=== PATIENT | male | born 1990 ===

== ENCOUNTER 2017-02-07 05:54 | Emergency (ER) | payer SELFPAY ==
[2017-02-07 05:59] VITALS: BP 141/82; PULSE 111; RESP 16; TEMP 97.8; O2SAT 98
--- NOTE | 2017-02-07 06:21 | ED PDOC ---
HPI: Psych/Substance Abuse Time Seen by Provider: 02/07/17 06:05 Chief Complaint (Nursing): Medical Clearance Chief Complaint (Provider): Medical Clearance History Per: Patient History/Exam Limitations: no limitations Current Symptoms Are (Timing): Still Present Suicide/Self Injury Attempted (Context): None Modifying Factor(s): Alcohol Involuntary Hold By: Local Law Enforcement Additional Complaint(s): 26 year old male brought in by D presents to ED for medical and psychiatric evaluation, denies any past medical/surgical history, and is under arrest. Patient denies all medical complaints and admits to drinking. [facility] states patient was arrested for a DUI and attempted to run. PCP: None Past Medical History Reviewed: Historical Data, Nursing Documentation, Vital Signs Vital Signs: Last Vital Signs Temp 97.8 F 02/07/17 05:57 Pulse 111 H 02/07/17 05:57 Resp 16 02/07/17 05:57 BP 141/82 02/07/17 05:57 Pulse Ox 98 02/07/17 05:57 - Medical History PMH: No Chronic Diseases - Surgical History Surgical History: No Surg Hx - Family History Family History: States: No Known Family Hx - Social History Alcohol: Other ((+) drinker) Drugs: Denies - Immunization History Hx Tetanus Toxoid Vaccination: No Hx Influenza Vaccination: No Hx Pneumococcal Vaccination: No - Home Medications Home Medications: Ambulatory Orders Medication Instructions Recorded Dicyclomine [Bentyl] 20 mg PO Q6 PRN #12 tab 01/16/17 Ondansetron ODT [Zofran ODT] 1 odt PO BID PRN #12 odt 01/16/17 - Allergies Allergies/Adverse Reactions: Allergies Allergy/AdvReac Type Severity Reaction Status Date / Time No Known Allergies Allergy Verified 01/16/17 15:41 Review of Systems ROS Statement: Except As Marked, All Systems Reviewed And Found Negative ( Patient denies all medical complaints) Physical Exam - Reviewed Nursing Documentation Reviewed: Yes Vital Signs Reviewed: Yes - Physical Exam Appears: Positive for: Non-toxic, No Acute Distress Head Exam: Positive for: ATRAUMATIC Skin: Positive for: Normal Color, Dry Eye Exam: Positive for: Normal appearance, EOMI, PERRL Neck: Positive for: Normal, Painless ROM Respiratory: Negative for: Respiratory Distress Extremity: Positive for: Normal ROM. Negative for: Deformity Neurologic/Psych: Positive for: Alert, Oriented, Gait (unsteady) - ECG O2 Sat by Pulse Oximetry: 98 (RA) Pulse Ox Interpretation: Normal Medical Decision Making Medical Decision Makin Initial impression: medical and psychiatric clearance for incarceration Initial plan: * crisis evaluation Patient is medically cleared for psychiatric evaluation. 625 Patient has been evaluated by crisis and deemed stable for discharge into police custody and stable for incarceration. Scribe Attestation: Documented by Dotty Tyson acting as a scribe for Ovidio Mon MD. Scribe Attestation: All medical record entries made by the Scribe were at my direction and personally dictated by me. I have reviewed the chart and agree that the record accurately reflects my personal performance of the history, physical exam, medical decision making, and the department course for this patient. I have also personally directed, reviewed, and agree with the discharge instructions and disposition. Disposition - Clinical Impression Clinical Impression: Medical clearance for incarceration, Alcohol intoxication - Disposition [facility] Disposition: Routine/Home Disposition Time: Condition: STABLE Additional Instructions: Patient is medically and psychiatrically cleared for incarceration. Instructions: Alcohol Intoxication (ED)
== END 2017-02-07 06:29 ==
LOC: H.ER 05:54
DX: F10.129 Alcohol abuse with intoxication, unspecified